=== PATIENT | female | born 1985 | race Two or more races ===

== ENCOUNTER 2025-03-01 06:51 | Day surgery (SDC) | payer MEDICAID, SELFPAY ==
[2025-03-01] VITALS (9 sets, daily range): BP systolic 102–125; BP diastolic 63–84; PULSE 69–96; RESP 12–26; TEMP 36.6–36.7; O2SAT 96–100; BMI 20.9
[2025-03-01 07:25] LABS: HCG Qualitative,Urine Negative
[2025-03-01] MEDS: MIDAZOLAM INJ 1 MG/ML VIAL 2 ML (ASD USE ONLY) 2 MG IV (07:53)
[2025-03-01] MEDS: SODIUM CHLORIDE 0.9% 500 ML 500 ML 100 ML IV (07:53)
[2025-03-01] MEDS: DiphenhydrAMINE INJ 50 MG/ML VIAL 25 MG IV (07:54)
[2025-03-01] MEDS: fentaNYL CIT INJ 50 mCg/ML AMP 2ML (ASD USE ONLY) IV (07:55)
== END 2025-03-01 08:46 | disposition home or self-care (01) ==
PROVIDERS: PCP Family Medicine; Referring Provider Surgery; Visit Provider Surgery
PROC: 0DBE8ZX Excision of Large Intestine, Via Natural or Artificial Opening Endoscopic, Diagnostic (ICD-10-PCS; CPT 45380; principal; 2025-03-01 07:30)
DX: K64.1 Second degree hemorrhoids (principal); K64.4 Residual hemorrhoidal skin tags
CPT/HCPCS: 45378; 81025; J1200; J2250; J3010; J7040